=== PATIENT | male | born 1945 | race Caucasian/White ===

== ENCOUNTER 2016-11-20 23:23 | Emergency (ER) | payer OTHER ==
[~2016-11-20] VITALS: Ht 101.6 cm; Wt 34.1 kg
[~2016-11-20 23:23] MED LIST: ACETAMINOP160 MG/51 PO; ACETAMINOPHEN650 M7 PO; ALBUTEROL0.63 MG/3 IH; AMOX TR-K400 MG/5 M GT; AMOX TR-K600 MG/5 M GT; ASCORBIC ACID500 M3 PO; ATIVAN1 MG G; ATIVAN1 MG GT; ATIVAN1 MG PO; ATIVAN2 MG/ML IM; ATROVENT 00.5 MG/2.5 IH; AUGMENTIN600 MG/5 M PO; AUGMENTIN875 MG PO; Ascorbic Acid,Ester- PEG; Ascorbic Acid,Ester- PO; Ativan PEG; Ativan PO; Augmentin PO; BISACODYL SUPP10 MG PR; CALCIUM 600 +1 EAC4 GT; CARAFATE1 GM GT; CARAFATE1 GM PO; CARAFATE100 MG/ML GT; CARAFATE100 MG/ML PO; CELEXA20 MG G; CELEXA20 MG PO; CHILDMUCINEX GT; CHILDREN'S100 MG/55 GT; CHILDREN'S650 MG/20. GT; COLACE10 MG/ML G; COLACE10 MG/ML GT; Carafate PEG; Carafate PO; Colace PEG; Colace PO; DEPAKENE250 MG/5 M GT; DEPAKOTE125 MG PO; DEPAKOTE250 MG PO; DIOCTO50 MG/5 ML GT; DIOCTO50 MG/5 ML PO; DOC-Q-LACE50 MG/5 ML G-TUBE; DOCU LIQUI50 MG/5 ML GT; DOCU LIQUI50 MG/5 ML PO; DOCUSATE S60 MG/15 M GT; DOCUSATE SODIU100 MG PO; DUONEB 2.5-0.5 M3 ML AEROSOL; DUONEB 2.5-0.5 M3 ML IH; DUONEB 2.5-0.5 M3 ML IPPB; DURAGESIC12 MCG TD; DURAGESIC25 MCG TD; DURAGESIC50 MCG TD; Depakote ER (Extende PEG; Dulcolax PR; EXPECTORANT200 M1 GT; EXTRA STRENGTH500 M1 GT; FENTANYL1 EAC4 TD; FENTANYL1 EAC5 TD; FEOSOL300 MG/5 M GT; FEOSOL325 MG PO; FEOSOL44 MG/ML GT; FEROSUL220 MG/51 GT; FERROUS SU220 MG/51 G; FLEET ENEMA-AD118 ML PR; FORTICAL3.7 ML; FORTICAL3.7 ML ALT NARES; Feosol PEG; Feosol PO; Fortical, Miacalcin ALT NARES; IPRATR-ALBUTEROL3 ML IH; IPRATROPIU0.2 MG/1 M IH; K-DUR10 ME2 PO; K-Dur PO; KEPPRA XR500 MG GT; KEPPRA100 MG/1 M GT; KEPPRA100 MG/1 M PO; KEPPRA500 MG G; KEPPRA500 MG PO; Keppra PEG; LEVETIRACE100 MG/1 M GT; LEVETIRACE100 MG/1 M PO; LEVOFLOXACIN500 MG PO; LEVOTHROID25 MCG G; LEVOTHYROXINE25 MCG GT; LEVOTHYROXINE25 MCG PO; LEVOTHYROXINE50 MCG GT; LEVOXYL25 MCG GT; LORAZEPAM0.5 MG GT; LORAZEPAM1 MG GT; Levothroid,Synthroid PO; MAGIC BULLET10 MG RC; MIACALCIN200 INTUNI ALT NARES; MILK OF MAGN GT; MILK OF MAGNESI10 ML PO; MULT-VIT-FLUOR0.5 M1 PO; Milk Of Magnesia,MOM PO; NABI650T GT; OMEPRAZOLE GT; OMEPRAZOLE20 MG GT; OMEPRAZOLE20 MG PO; OSMOLITE GT; OSMOLITE1000 M1 GT; OSMOLITE1000 M1 PO; OYST-CAL-500500 MG GT; OYST-CAL-500500 MG PO; OYSTER SHELL 51 EACH GT; OYSTER SHELL W1 EACH PO; Oscal, Oyster Shell PEG; PHENADOZ25 MG PR; PHILLIPS'400 MG/5 M G; PHILLIPS'400 MG/5 M GT; PRILOSEC20 MG GT; PRILOSEC20 MG PEG; PRILOSEC20 MG PO; PROMETHEGAN25 MG PR; PROTONIX40 MG PO; PROVENTIL,2.5 MG/3 M IH; PriLOSEC PO; QUETIAPINE FUM200 MG GT; QUETIAPINE FUM300 MG GT; QUETIAPINE FUM300 MG PO; QUETIAPINE FUMA50 MG PO; REGLAN5 MG PO; SEROQUEL XR150 MG GT; SEROQUEL100 MG G; SEROQUEL100 MG GT; SEROQUEL300 MG GT; SEROQUEL300 MG PO; SEROQUEL50 MG GT; SEROQUEL50 MG PEG; SEROQUEL50 MG PO; SEROquel PO; SILVADENE20 GM TP; SUCRALFATE1 GM GT; SUCRALFATE1 GM/10 ML G; SYNTHROID25 MCG GT; THERAGRAN1 TABLET PO; TIROSINT25 MCG GT; TIROSINT25 MCG PO; TRAMADOL HCL50 MG GT; TRAMADOL HCL50 MG PO; TYLENOL EXTRA500 MG GT; Theragran PEG; Tums PO; Tylenol PR; Tylenol Regular Stre PEG; ULTRAM50 MG GT; VALPROIC A250 MG/5 M G; VALPROIC A250 MG/5 M GT; ZOFRAN4 MG PO; [UNRECOGNIZED DRUG - OTHER] GT; celeXA PEG; celeXA PO
[2016-11-21 01:14] LABS: EOSINOPHIL (%) 0.7 % (0-5); EOSINOPHIL COUNT 0.1 K/uL (0-0.3); IMMATURE GRANULOCYTE (%) 0.2 % (0.0-0.7); INSTRUMENT ABS NEUTROPHIL CT 6.5 K/uL; LYMPHOCYTE COUNT 1.1 K/uL (1.0-2.8); MCH 26.4 PG (29.0-34.0); MCV 85.2 FL (86-99); MEAN PLAT.VOLUME 10.7 uM^3 (9.0-12.4); MONOCYTE (%) 6.7 % (3-12); MONOCYTE COUNT 0.6 K/uL (0-0.8); NEUTROPHIL (%) 79.2 % (45-76); NEUTROPHIL COUNT 6.5 K/uL (1.8-6.4); PLATELET COUNT 316 K/uL (156-360); RBC DIS.WIDTH-CV 13.8 % (11.8-14.6); RBC DIS.WIDTH-SD 42.9 % (39-53); RED BLOOD COUNT 3.52 M/uL (4.00-5.50); WHITE BLOOD COUNT 8.2 K/uL (4.1-10.2)
[2016-11-21 01:29] LABS: CHLORIDE 97 mEq/L (99-109); POTASSIUM 4.4 mEq/L (3.7-5.4); SODIUM 133 mEq/L (136-147)
[2016-11-21 01:30] LABS: GLUCOSE 107 mg/dL (70-99)
[2016-11-21 01:32] LABS: ANION GAP 9 MEQ/L (2-14)
[2016-11-21 01:34] LABS: GFR ESTIMATE (CALCULATED) > 59 mL/min/
[2016-11-21 01:35] LABS: TROP-I INTERPRETATION NEGATIVE; TROPONIN-I < 0.01 ng/mL (0.0-0.30); UREA NITROGEN (BUN) 12 mg/dL (9-23)
[2016-11-21] MEDS ORDERED: LEVAQUIN500 MG PO (03:34)
[2016-11-21 04:17] VITALS: BP 98/51
== END 2016-11-21 04:18 | disposition home or self-care (01) ==
LOC: EME → EDBD 23:23 → EME 11-21 04:18
PROVIDERS: Emergency Medicine
DX: J90 Pleural effusion, not elsewhere classified (principal); R09.02 Hypoxemia; F79 Unspecified intellectual disabilities; J44.9 Chronic obstructive pulmonary disease, unspecified; K21.9 Gastro-esophageal reflux disease without esophagitis; R56.9 Unspecified convulsions; E03.9 Hypothyroidism, unspecified; Z93.1 Gastrostomy status
CPT/HCPCS: 71010; 80048; 83880; 84484; 85025; 93005; 94640; 99281; 99285; J7030

== ENCOUNTER 2016-11-26 14:17 | Emergency (ER) | payer OTHER ==
[~2016-11-26] VITALS: Ht 149.9 cm; Wt 30.9 kg
[~2016-11-26 14:17] MED LIST changes: +LEVAQUIN500 MG PO
[2016-11-26 15:59] LABS: HEMATOCRIT 29.7 % (38.0-50.0); MCH 26.5 PG (29.0-34.0); MCHC 31.3 G/DL (30.0-36.0); MCV 84.6 FL (86-99); MEAN PLAT.VOLUME 10.8 uM^3 (9.0-12.4); PLATELET COUNT 338 K/uL (156-360); RBC DIS.WIDTH-CV 13.5 % (11.8-14.6); RED BLOOD COUNT 3.51 M/uL (4.00-5.50); WHITE BLOOD COUNT 2.8 K/uL (4.1-10.2)
[2016-11-26 16:05] LABS: CHLORIDE 97 mEq/L (99-109); SODIUM 133 mEq/L (136-147)
[2016-11-26 16:07] LABS: GLUCOSE 95 mg/dL (70-99)
[2016-11-26 16:08] LABS: ANION GAP 9 MEQ/L (2-14)
[2016-11-26 16:11] LABS: GFR ESTIMATE (CALCULATED) > 59 mL/min/
[2016-11-26 16:12] LABS: UREA NITROGEN (BUN) 15 mg/dL (9-23)
[2016-11-26] MEDS ORDERED: MIRALAX255 GM PO (18:40)
[2016-11-26 18:59] VITALS: BP 128/70
== END 2016-11-26 19:00 | disposition home or self-care (01) ==
LOC: EME 14:17
DX: K92.2 Gastrointestinal hemorrhage, unspecified (principal); K59.00 Constipation, unspecified; D64.9 Anemia, unspecified; F79 Unspecified intellectual disabilities; J44.9 Chronic obstructive pulmonary disease, unspecified; K21.9 Gastro-esophageal reflux disease without esophagitis; R56.9 Unspecified convulsions; Z93.1 Gastrostomy status
CPT/HCPCS: 74000; 80048; 85027; 86900; 86901; 99281; 99284

== ENCOUNTER 2017-01-12 16:36 | Emergency (ER) | payer OTHER ==
[~2017-01-12] VITALS: Ht 147.3 cm; Wt 29.9 kg
[~2017-01-12 16:36] MED LIST changes: +MIRALAX255 GM PO
[2017-01-12] MEDS ORDERED: CLINDAMYCIN HC300 MG PO (22:06)
[2017-01-12 22:31] VITALS: BP 120/75
== END 2017-01-12 22:37 | disposition home or self-care (01) ==
LOC: EME 16:36 → RME 16:36
DX: H66.42 Suppurative otitis media, unspecified, left ear (principal); J44.9 Chronic obstructive pulmonary disease, unspecified; K21.9 Gastro-esophageal reflux disease without esophagitis; E03.9 Hypothyroidism, unspecified; Z93.1 Gastrostomy status
CPT/HCPCS: 87070; 87075; 87205; 99281; 99284; J1630

== ENCOUNTER 2017-07-13 15:06 | Emergency (ER) | payer OTHER ==
[~2017-07-13] VITALS: Ht 147.3 cm; Wt 29.5 kg
[~2017-07-13 15:06] MED LIST changes: +CLINDAMYCIN HC300 MG PO
[2017-07-13 17:36] VITALS: BP 119/55
== END 2017-07-13 17:51 | disposition home or self-care (01) ==
LOC: EME 15:06
DX: S40.022A Contusion of left upper arm, initial encounter (principal); Z88.1 Allergy status to other antibiotic agents
CPT/HCPCS: 93971

== ENCOUNTER 2017-07-31 17:09 | Emergency (ER) | payer OTHER ==
[~2017-07-31] VITALS: Ht 147.3 cm; Wt 29.5 kg
[2017-07-31 22:17] VITALS: BP 136/76
== END 2017-07-31 22:19 | disposition home or self-care (01) ==
LOC: EME 17:09
PROC: 0D20XUZ Change Feeding Device in Upper Intestinal Tract, External Approach (ICD-10-PCS; principal; 2017-07-31)
DX: Z43.1 Encounter for attention to gastrostomy (principal); K21.9 Gastro-esophageal reflux disease without esophagitis; F79 Unspecified intellectual disabilities; E03.9 Hypothyroidism, unspecified; J44.9 Chronic obstructive pulmonary disease, unspecified
CPT/HCPCS: 74018

== ENCOUNTER 2018-02-04 09:06 | Emergency (ER) | payer OTHER ==
[~2018-02-04] VITALS: Ht 149.9 cm; Wt 31.8 kg
[2018-02-04] MEDS ORDERED: AUGMENTIN80 MG/ML PO (11:46)
[2018-02-04] MEDS ORDERED: AUGMENTIN80 MG/ML GT (11:48)
[2018-02-04 12:15] VITALS: BP 97/52
== END 2018-02-04 13:22 | disposition home or self-care (01) ==
LOC: EME 09:06
DX: R09.02 Hypoxemia (principal); J43.9 Emphysema, unspecified; F32.9 Major depressive disorder, single episode, unspecified; E03.9 Hypothyroidism, unspecified; G40.909 Epilepsy, unspecified, not intractable, without status epilepticus; Z51.5 Encounter for palliative care; F41.9 Anxiety disorder, unspecified; H54.7 Unspecified visual loss; K21.9 Gastro-esophageal reflux disease without esophagitis; Z88.1 Allergy status to other antibiotic agents
CPT/HCPCS: 99281; 99284